=== PATIENT | female | born 1980 | race Caucasian/White ===

== ENCOUNTER 2017-05-30 14:35 | Outpatient (CLI) | payer BC ==
--- NOTE | 2017-05-30 16:13 | DIAGNOSTIC IMAGING REPORT ---
PROCEDURE: MG BILATERAL DIAGNOSTIC W/CAD INDICATION: Bilateral breast periareolar nipple tenderness. Family history breast carcinoma (aunt). TECHNIQUE: True lateral, CC, and MLO digital views of each breast . In addition, high-resolution bilateral breast ultrasound was performed (18 mHz). COMPARISON: None. FINDINGS: MAMMOGRAM: Computer-aided detection applied. Mildly dense parenchymal pattern. No evidence of mass or suspicious calcification. BREAST ULTRASOUND: Left: Mild retroareolar ductal ectasia. No evidence of mass or cyst Right: Mild retroareolar ductal ectasia. No evidence of mass or cyst. IMPRESSION: 1. Negative mammogram and negative bilateral breast ultrasound. 2. Findings discussed with the patient. RESULT CODE: 1- Negative. A. A negative report should not delay biopsy if a dominant or clinically suspicious mass is present. 10-15% of cancers are not identified by x-ray. B. A negative report may reinforce clinical impression. C. Adenosis and dense breasts may obscure an underlying neoplasm. D. False positive reports average 6-10%. E.. A yearly screening mammogram is recommended. A reminder letter will be scheduled.
== END 2017-05-30 23:00 ==
LOC: MAM SRH 14:35
DX: N64.4 Mastodynia (principal)